=== PATIENT | male | born 2005 | race Two or more races ===

== ENCOUNTER 2023-12-11 17:49 | Emergency (ER) | payer MEDICAID ==
[~2023-12-11] VITALS: Ht 167.6 cm; Wt 67.8 kg
[2023-12-11 18:09] VITALS: BP 11/62; PULSE 74; RESP 20; TEMP 98.3; O2SAT 97
== END 2023-12-11 19:44 | disposition left against medical advice (07) ==
LOC: MED 17:49
DX: R05.9 Cough, unspecified (principal); R09.89 Other specified symptoms and signs involving the circulatory and respiratory systems; J02.9 Acute pharyngitis, unspecified; Z53.21 Procedure and treatment not carried out due to patient leaving prior to being seen by health care provider